=== PATIENT | male | born 1980 | race Caucasian/White ===

== ENCOUNTER 2016-09-19 00:05 | Emergency (ER) | payer SELFPAY ==
[~2016-09-19] VITALS: Ht 180.3 cm; Wt 81.6 kg
[2016-09-19 00:11] VITALS: BP 137/90
--- NOTE | 2016-09-19 00:17 | NUR ---
PT TAKEN TO BED 7
--- NOTE | 2016-09-19 00:29 | NUR ---
Dr. Iverson evaluating patient at bedside.
--- NOTE | 2016-09-19 00:38 | NUR ---
35 Y/O M W/C/O GENERAL BODY ACHES AND NUMBNESS SINCE LAST SUNDAY. DENIES ANY CHEST PAIN OR SOB. PT STATES HE DRINKS OFTEN ALCOHOL, AND ENERGEGY DRINKS AND STATES HASNT BEING ABLE TO SLEEP WELL. ON [employer]NAGER, VSS, ER MADE AWARE.
[2016-09-19] MEDS ORDERED: LORazepam 1 MG TAB PO ONE (00:40)
[2016-09-19 01:40] VITALS: BP 134/89
--- NOTE | 2016-09-19 01:40 | NUR ---
Patient discharged with v/s stable. Written and verbal after care instructions given and explained. Patient alert, oriented and verbalized understanding of instructions. Ambulatory with steady gait. All questions addressed prior to discharge. ID band removed. Patient advised to follow up with PMD. Rx of XANAX 0.5 MG given. Patient educated on indication of medication including possible reaction and side effects. Opportunity to ask questions provided and answered.
== END 2016-09-19 01:40 | disposition home or self-care (01) ==
LOC: MED 00:05
DX: F41.9 Anxiety disorder, unspecified (principal); I10 Essential (primary) hypertension
CPT/HCPCS: 93005; 99283

== ENCOUNTER 2021-11-25 00:25 | Emergency (ER) | payer SELFPAY ==
[~2021-11-25] VITALS: Ht 180.3 cm; Wt 89.8 kg
[2021-11-25 00:30] VITALS: BP 150/98
--- NOTE | 2021-11-25 00:33 | NUR ---
TO LOBBY A/W BED AMBULATORY
--- NOTE | 2021-11-25 01:16 | NUR ---
PT AMBULATED TO ER BED 7
--- NOTE | 2021-11-25 01:20 | NUR ---
C/O ANXIETY ATTACK SINCE SUNDAY
[2021-11-25] MEDS ORDERED: LORazepam 0.5 MG TAB PO ONE (02:40)
[2021-11-25] MEDS ORDERED: HYDR25CA1 PO (03:15)
[2021-11-25 03:25] VITALS: BP 150/98
--- NOTE | 2021-11-25 03:25 | NUR ---
Patient discharged with v/s stable. Written and verbal after care instructions given and explained. Patient alert, oriented and verbalized understanding of instructions. Ambulatory with steady gait. All questions addressed prior to discharge. ID band removed. Patient advised to follow up with PMD. Rx of VISTARIL given. Patient educated on indication of medication including possible reaction and side effects. Opportunity to ask questions provided and answered.
== END 2021-11-25 03:25 | disposition home or self-care (01) ==
LOC: MED 00:25
DX: F41.9 Anxiety disorder, unspecified (principal); I10 Essential (primary) hypertension; Z79.899 Other long term (current) drug therapy; Z98.890 Other specified postprocedural states
CPT/HCPCS: 93005; 99283

== ENCOUNTER 2021-11-27 10:11 | Emergency (ER) | payer SELFPAY ==
[~2021-11-27] VITALS: Ht 180.3 cm; Wt 90.7 kg
[~2021-11-27 10:11] MED LIST: HYDR25CA1 PO
[2021-11-27 10:16] VITALS: BP 146/97
--- NOTE | 2021-11-27 10:55 | NUR ---
WAS SEEN ON 11/25/21 FOR ANXIETY, REQUESTING OTHER MEDICATION "ANXIETY KEEPS COMING AND GOING" [facility] PMH: ANXIETY, HTN RX: HYDROXIZINE
[2021-11-27] MEDS ORDERED: HYDR50CA1 PO ×2 (11:44→11:47)
[2021-11-27 11:57] VITALS: BP 146/97
--- NOTE | 2021-11-27 11:58 | NUR ---
Patient discharged with v/s stable. Written and verbal after care instructions given and explained. Patient alert, oriented and verbalized understanding of instructions. Ambulatory with steady gait. All questions addressed prior to discharge. ID band removed. Patient advised to follow up with PMD. Rx of vistaril (sent) given. Patient educated on indication of medication including possible reaction and side effects. Opportunity to ask questions provided and answered. copy of mental health packet given
== END 2021-11-27 11:57 | disposition home or self-care (01) ==
LOC: MED 10:11
DX: F41.0 Panic disorder [episodic paroxysmal anxiety] (principal); I10 Essential (primary) hypertension; F17.210 Nicotine dependence, cigarettes, uncomplicated; Z72.89 Other problems related to lifestyle; Z79.899 Other long term (current) drug therapy
CPT/HCPCS: 99283